=== PATIENT | male | born 1995 | race Caucasian/White ===

== ENCOUNTER 2019-03-07 20:20 | Emergency (ER) | payer MEDICARE ==
[~2019-03-07] VITALS: Ht 182.9 cm; Wt 84.1 kg
[2019-03-07 21:08] VITALS: BP 147/97
== END 2019-03-07 22:06 | disposition home or self-care (01) ==
LOC: EMS 20:21
DX: R42 Dizziness and giddiness (principal); V49.40XA Driver injured in collision with unspecified motor vehicles in traffic accident, initial encounter; Y93.89 Activity, other specified; Y92.89 Other specified places as the place of occurrence of the external cause; Y99.8 Other external cause status